=== PATIENT | female | born 1955 | race Caucasian/White ===

== ENCOUNTER 2024-02-06 07:12 | Day surgery (SDC) | payer OTHER ==
[2024-02-02 11:15] LABS: Absolute Basophils 0.1 K/uL (0-0.5); Absolute Eosinophils 0.1 K/uL (0-0.5); Absolute Lymphocytes (CBC) 2.2 K/uL (0.7-4.9); Absolute Monocytes 0.5 K/uL (0.1-1.3); Absolute Neutrophil 5.7 K/uL (1.8-8.0); Basophils % 0.6 % (0-1.3); Eosinophils % 0.8 % (0-4.4); Hematocrit 46.7 % (36.0-45.0); Hemoglobin 15.1 g/dL (12.0-15.0); Lymphocytes % 25.9 % (15.3-44.8); MCH 28.4 pg (27.0-35.0); MCHC 32.3 g/dL (32.0-36.0); MCV 87.9 fL (80-100); MPV 9.6 fL (7.6-11.3); Monocytes % 5.9 % (3.3-12.3); Neutrophils % 66.8 % (41.7-73.7); Platelets 189 thou/uL (152-406); RBC Red Blood Cell Count 5.32 M/uL (3.86-4.86); Red Cell Distribution Width 13.6 % (12.1-15.2)
[2024-02-02 11:26] LABS: Anion Gap 8.5 mEq/L (5.0-15.0); Potassium 5.5 mEq/L (3.5-5.1)
--- NOTE | 2024-02-03 08:53 | EKG ---
Test Date: 2024-02-02 Test Time: 11:41:04 Mold Sander: CARRIE MEASUREMENT RESULTS: Intervals: Rate: 60 IN: 168 QRSD: 84 QT: 402 QTc: 402 Salters: P: 66 IN: 168 QRS: 32 T: 43 INTERPRETIVE STATEMENTS: Normal sinus rhythm Low voltage QRS Borderline ECG No previous ECG available for comparison Electronically Signed On 02-03-24 08:51:28 [employer] by Dmitriy Nash
[2024-02-06] MEDS: Ringers Lactate 1,000 ML IV ONE (08:00)
[2024-02-06] MEDS ORDERED: propofoL 200 MG/20 ML VIAL IV ONE ×3 (08:36→09:13)
[2024-02-06] MEDS ORDERED: LIDOCAINE 1% MPF 5 ML VIAL ONE (08:36)
[2024-02-06] MEDS ORDERED: FENTANYL CITR 100 MCG/2 ML ONE (09:14)
[2024-02-06] MEDS: ONDANSETRON 4 MG/2 ML VIAL ONE (10:00)
[2024-02-06] MEDS: PROMETHAZINE INJ 25 MG/ML AMP ONE (11:05)
--- NOTE | 2024-02-06 11:46 | RAD REPORT ---
Exam:Abdomen 1 View (KUB) Clinical history: Abdominal pain FINDINGS: Free air is not visualized beneath the diaphragm.
[2024-02-06 12:25] VITALS: O2SAT 98
[2024-02-06 12:26] VITALS: BP 134/84; TEMP 98
== END 2024-02-06 11:52 | disposition home or self-care (01) ==
LOC: OR 07:12
PROVIDERS: ATTEND Surgery
PROC: 0DBN8ZX Excision of Sigmoid Colon, Via Natural or Artificial Opening Endoscopic, Diagnostic (ICD-10-PCS; 2024-02-06)
PROC: 0DBK8ZX Excision of Ascending Colon, Via Natural or Artificial Opening Endoscopic, Diagnostic (ICD-10-PCS; principal; 2024-02-06 08:45)
DX: Z12.11 Encounter for screening for malignant neoplasm of colon (principal); K57.30 Diverticulosis of large intestine without perforation or abscess without bleeding; K64.8 Other hemorrhoids; K63.5 Polyp of colon
CPT/HCPCS: 45385; 93005; 85025; 80048; 36415 ×2; 84132; 88305; 74018; J2550; J2704 ×3; J2003; J3010; J2405; J7120